=== PATIENT | female | born 1985 ===

== ENCOUNTER 2020-12-10 13:20 | Inpatient (IN) | payer BC ==
[2020-12-10] MEDS ORDERED: Carboprost Tromethamine 250 MCG/1 ML Amp IM PRN (14:11)
[2020-12-10] MEDS ORDERED: Misoprostol 25 MCG (1/4 of 100 MCG) Tab VAG PRN ×2 (14:11)
[2020-12-10] MEDS ORDERED: Terbutaline 1 MG/ML SDV SUBCUT PRN (14:11)
[2020-12-10] MEDS ORDERED: Nalbuphine 10 MG/1 ML Vial IVPUSH PRN (14:11)
[2020-12-10] MEDS ORDERED: Butorphanol 1 MG/ML SDV IVPUSH PRN (14:11)
[2020-12-10] MEDS ORDERED: Lidocaine 1% 50 ML MDV INJECT PRN (14:11)
[2020-12-10] MEDS ORDERED: Sodium Chloride 0.9% 2.5 ML Syringe FLUSH PRN (14:11)
[2020-12-10] MEDS ORDERED: Methylergonovine 0.2 MG/1 ML Amp IM PRN (14:11)
[2020-12-10] MEDS ORDERED: Sodium Chloride 0.9% 10 ML SDV IV PRN (14:11)
[2020-12-10] MEDS ORDERED: Sodium Chloride 0.9% 10 ML Syringe FLUSH PRN (14:11)
[2020-12-10] MEDS ORDERED: Misoprostol 200 MCG Tab PO PRN (14:11)
[2020-12-10] MEDS ORDERED: Water For Irrigation,Sterile 1,000 ML Container IRR PRN (14:11)
[2020-12-10] MEDS ORDERED: Tranexamic Acid 1,000 MG in Sodium Chloride 0.9% 100 ML IV PRN (14:11)
[2020-12-10] MEDS ORDERED: Oxytocin/0.9 % Sodium Chloride 30 UNIT/500 ML BAG IV SCH ×2 (14:15)
[2020-12-10] MEDS: Lactated Ringers 1,000 ML IV SCH ×3 (17:25→21:35)
[2020-12-10] MEDS ORDERED: Oxytocin/0.9 % Sodium Chloride 30 UNIT/500 ML BAG ONE (17:31)
[2020-12-10] MEDS ORDERED: Ropivacaine HCl/PF 200 ML ONE (20:04)
[2020-12-10] MEDS ORDERED: Bupivacaine 0.25% 10 ML SDV ONE (20:04)
--- NOTE | 2020-12-10 20:38 | PCM.PREANE ---
Preanesthetic Assessment - Anesthesia/Transfusion/Family Hx Anesthesia History: Prior Anesthesia Without Reaction Family History of Anesthesia Reaction: No Transfusion History: Prior Transfusion Without Reaction - Review of Systems General: No Symptoms Pulmonary: No Symptoms Cardiovascular: No Symptoms Gastrointestinal: No Symptoms Neurological: No Symptoms Other: Reports: None - Physical Assessment NPO Status Date: 12/10/20 NPO Status Time: 18:00 Height: 5 ft 4 in Weight: 280 lb ASA Class: 2 Mental Status: Alert & Oriented x3 Airway Class: Mallampati = 3 Dentition: Reports: Normal Dentition ROM/Head Extension: Full Lungs: Clear to Auscultation, Normal Respiratory Effort Cardiovascular: Regular Rate, Regular Rhythm - Lab Values: Laboratory Last Values WBC 10.12 K/uL (4.0-11.0) 12/10/20 14:00 RBC 4.32 M/uL (4.30-5.90) 12/10/20 14:00 Hgb 12.5 g/dL (12.0-16.0) 12/10/20 14:00 Hct 36.9 % (36.0-46.0) 12/10/20 14:00 MCV 85.4 fL (80.0-98.0) 12/10/20 14:00 MCH 28.9 pg (27.0-32.0) 12/10/20 14:00 MCHC 33.9 g/dL (31.0-37.0) 12/10/20 14:00 RDW Std Deviation 45.2 fl (28.0-62.0) 12/10/20 14:00 RDW Coeff of Karen 15 % (11.0-15.0) 12/10/20 14:00 Plt Count 211 K/uL (150-400) 12/10/20 14:00 MPV 12.10 fL (7.40-12.00) H 12/10/20 14:00 Nucleated RBC % 0.0 /100WBC 12/10/20 14:00 Nucleated RBCs # 0 K/uL 12/10/20 14:00 Urine Color YELLOW 12/10/20 18:55 Urine Appearance CLEAR 12/10/20 18:55 Urine pH 6.0 (5.0-8.0) 12/10/20 18:55 Ur Specific [place] 1.025 (1.001-1.035) 12/10/20 18:55 Urine Protein NEGATIVE mg/dL (NEGATIVE) 12/10/20 18:55 Urine Glucose (UA) NEGATIVE mg/dL (NEGATIVE) 12/10/20 18:55 Urine Ketones NEGATIVE mg/dL (NEGATIVE) 12/10/20 18:55 Urine Occult Blood LARGE (NEGATIVE) H 12/10/20 18:55 Urine Nitrite NEGATIVE (NEGATIVE) 12/10/20 18:55 Urine Bilirubin NEGATIVE (NEGATIVE) 12/10/20 18:55 Urine Urobilinogen 0.2 EU/dL (<2.0) 12/10/20 18:55 Ur Leukocyte Esterase NEGATIVE (NEGATIVE) 12/10/20 18:55 SARS-CoV-2 RNA (KRZYSZTOF) NEGATIVE (NEGATIVE) 12/10/20 14:00 Blood Type A POSITIVE 12/10/20 14:00 Antibody Screen NEGATIVE 12/10/20 14:00 - Allergies Allergies/Adverse Reactions: Allergies Allergy/AdvReac Type Severity Reaction Status Date / Time No Known Allergies Allergy Verified 11/20/20 14:35 - Blood Blood Available: Yes Product(s) Available: PRBC - Acknowledgements Anesthesia Type Planned: Epidural Pt an Appropriate Candidate for the Planned Anesthesia: Yes Alternatives and Risks of Anesthesia Discussed w Pt/Guardian: Yes Pt/Guardian Understands and Agrees with Anesthesia Plan: Yes PreAnesthesia Questionnaire - Past Health History Medical/Surgical History: Denies 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: - SUBSTANCE USE Tobacco Use Status *Q: Never Tobacco User Second Hand Smoke Exposure: No Recreational Drug Use History: No - CURRENT (IN HOUSE) MEDS Current Meds: Current Medications Butorphanol Tartrate (Butorphanol 1 Mg/Ml Sdv) 1 mg IVPUSH Q1H PRN PRN Reason: Pain (severe 7-10) Carboprost Tromethamine (Carboprost Tromethamine 250 Mcg/1 Ml Amp) 250 mcg IM ASDIRECTED PRN PRN Reason: Post Hemorrhage Oxytocin/Sodium Chloride (Oxytocin 30 Unit/500 Ml-Ns) 30 unit in 500 mls @ 999 mls/hr IV TITRATE RASHIDA Tranexamic Acid 1,000 mg/ (Sodium Chloride) 110 mls @ 660 mls/hr IV ONETIME PRN PRN Reason: Bleeding Oxytocin/Sodium Chloride (Oxytocin 30 Unit/500 Ml-Ns) 30 unit in 500 mls @ 2 mls/hr IV TITRATE RASHIDA; Protocol Last Titration: 12/10/20 19:05 Dose: 6 munits/min, 6 mls/hr Documented by: Lactated Ringer's (Ringers, Lactated) 1,000 mls @ 150 mls/hr IV ASDIRECTED RASHIDA Last Admin: 12/10/20 20:20 Dose: 150 mls/hr Documented by: Lidocaine HCl (Lidocaine 1% 50 Ml Mdv) 50 ml INJECT ONETIME PRN PRN Reason: Laceration repair Methylergonovine Maleate (Methylergonovine 0.2 Mg/1 Ml Amp) 0.2 mg IM ASDIRECTED PRN PRN Reason: Post Hemorrhage Misoprostol (Misoprostol 200 Mcg Tab) 200 mcg PO ONETIME PRN PRN Reason: Post Hemorrhage Misoprostol (Misoprostol 25 Mcg (1/4 Of 100 Mcg) Tab) 25 mcg VAG ONETIME PRN PRN Reason: Cervical Ripening Misoprostol (Misoprostol 25 Mcg (1/4 Of 100 Mcg) Tab) 25 mcg VAG Q4H PRN PRN Reason: Cervical Ripening Nalbuphine HCl (Nalbuphine 10 Mg/1 Ml Vial) 10 mg IVPUSH Q1H PRN PRN Reason: Pain (severe 7-10) Sodium Chloride (Sodium Chloride 0.9% 10 Ml Syringe) 10 ml FLUSH ASDIRECTED PRN PRN Reason: Keep Vein Open Sodium Chloride (Sodium Chloride 0.9% 2.5 Ml Syringe) 2.5 ml FLUSH ASDIRECTED PRN PRN Reason: Keep Vein Open Sodium Chloride (Sodium Chloride 0.9% 10 Ml Sdv) 10 ml IV ASDIRECTED PRN PRN Reason: IV Use Sterile Water (Water For Irrigation,Sterile 1,000 Ml Container) 1,000 ml IRR ASDIRECTED PRN PRN Reason: delivery Terbutaline Sulfate (Terbutaline 1 Mg/Ml Sdv) 0.25 mg SUBCUT ASDIRECTED PRN PRN Reason: Tacysystole Discontinued Medications Bupivacaine HCl (Bupivacaine 0.25% 10 Ml Sdv) Confirm Administered Dose 10 ml .ROUTE .STK-MED ONE Stop: 12/10/20 20:05 Oxytocin/Sodium Chloride (Oxytocin 30 Unit/500 Ml-Ns) Confirm Administered Dose 30 unit in 500 mls @ as directed .ROUTE .STK-MED ONE Stop: 12/10/20 17:32 Ropivacaine (Naropin 0.2%) Confirm Administered Dose 200 mls @ as directed .ROUTE .[employer]-MED ONE Stop: 12/10/20 20:05 - Pre-Procedure Checklist Attending Provider Aware: Yes Chart Reviewed: Yes Consent Signed: Yes Labs Reviewed: Yes VS/FHR Reviewed: Yes Patient Identification Confirmation Method: Reports: Verbal Patient Pt an Appropriate Candidate for the Planned Anesthesia: Yes Alternatives and Risks of Anesthesia Discussed w Pt/Guardian: Yes - Procedure Procedure Start Date: 12/10/20 Procedure Start Time: 20:[address]: Reports: Blood Pressure, Heart Rate, SPO2 Functional IV: Yes Safety Measures: Reports: Patient Identified, Procedure Verified, Site Verified, Procedure Time Out Patient Position: Reports: Sitting Prep: Reports: Betadine x3, Sterile Drape Local Anesthetic: Reports: Intradermal Wheal w Lidocaine 1% Regional Placement Level: Reports: L3-4 Needle: Reports: 17 g Touhy Approach: Reports: Midline Technique: Reports: HEAVENLY Plastic Syringe Parasthesia: Reports: None Test Dose Time: 20:20 Test Dose Medication: Reports: Lidocaine 1.5% w Epinephrine 1:200,000 Test Dose Response: Reports: Negative Loading Dose Time: 20:25 Loading Dose Medication: bupivicaine .25% 10cc Loading Dose Patient Position: sitting Continuous Infusion Start Time: 20:30 Continuous Infusion Medication: ropivicaine 0.2% Continuous Infusion Rate: 16 Continuous Infusion PCS Bolus Option: 4 Continuous Infusion Lockout Dose (cc/hr): 15 Patient Position Post Placement: Reports: Supline/CESAR VS and FHR Monitored in Unit Post Placement: Yes Procedure End Date: 12/10/20 Procedure End Time: 21:15
[2020-12-11] MEDS ORDERED: Acetaminophen 500 MG Tab PO PRN (01:48)
[2020-12-11] MEDS ORDERED: Benzocaine/Menthol 20%-0.5% Spray 78 GM Cannister TOP PRN (01:48)
[2020-12-11] MEDS ORDERED: Lanolin 100% Cream 7 GM Tube TOP PRN (01:48)
[2020-12-11] MEDS ORDERED: Bisacodyl 10 MG Supp RECTAL PRN (01:48)
[2020-12-11] MEDS ORDERED: Witch Hazel Medicated Pads 40/Jar TOP PRN (01:48)
[2020-12-11] MEDS ORDERED: Docusate Sodium 100 MG Cap PO PRN (01:48)
[2020-12-11] MEDS ORDERED: Ibuprofen 400 MG Tab PO PRN (01:48)
[2020-12-11] MEDS ORDERED: oxyCODONE 5 MG Tab PO PRN (01:48)
--- NOTE | 2020-12-11 01:56 | PCM.OPNOTE ---
- General Post-Op/Procedure Note Date of Surgery/Procedure: 12/11/20 Operative Procedure(s): /3rd MLL repaired Findings: Viable male APGARs 9, 9 weight 4190 gm. Spontaneous delivery intact placenta with 3V cord Pre Op Diagnosis: 41/3 week IUP. IOL for past due Post-Op Diagnosis: Same Anesthesia Technique: Epidural Primary Surgeon: Pattie Vogel EBL in mLs: 400 Complications: none known Condition: Stable Free Text/Narrative:: Dictation [id number]
[2020-12-11] MEDS: Docusate Sodium 100 MG Cap PO PRN ×2 (07:53→20:45)
[2020-12-11] MEDS: Acetaminophen 500 MG Tab PO PRN ×2 (07:53→20:45)
[2020-12-11] MEDS: Ibuprofen 800 MG Tab PO PRN ×2 (07:53→16:13)
--- NOTE | 2020-12-11 08:14 | OR ---
SURGEON: Pattie Vogel M.D. DATE OF PROCEDURE: 12/11/2020 PREOPERATIVE DIAGNOSES: 1. A 41/2 week intrauterine . 2. Induction of labor for past due . POSTOPERATIVE DIAGNOSES: 1. A 41/2 week intrauterine . 2. Induction of labor for past due . PROCEDURE: Spontaneous vaginal delivery; third-degree midline laceration, repaired. PRIMARY SURGEON: Pattie Vogel M.D. ANESTHESIA: Epidural. ESTIMATED BLOOD LOSS: 400 mL. COMPLICATIONS: None known. FINDINGS: Viable male. scores of 9 at one minute and 9 at five minutes. Weight of 4190 g. Spontaneous delivery, intact placenta, 3-vessel cord. DISPOSITION: to [facility]. Mom in LDRP, stable. PROCEDURE DETAILS: Margy is a 35-year-old, , at 41/2 weeks gestational age, who presents for scheduled induction of labor for past due . Upon admission, she was found to be 4 cm, 70% effaced, -2 station. She was admitted. Routine labs were drawn. IV hydration was initiated. Pitocin was initiated. Category 1 heart tones were observed. The patient underwent amniotomy. Clear fluid was returned. She became increasingly uncomfortable. Underwent regional anesthesia in the form of epidural, became more comfortable, and shortly thereafter was found to be approximately 8 cm dilated. The patient again continued to progress through the evening hours, and shortly after 7 p.m., was found to be complete with 100% effaced at zero station. She continued to labor, and once the head was at a +3 station, began pushing efforts, pushed readily to a +4 station, was placed in modified dorsal lithotomy position, prepped and draped in the usual aseptic manner. She was able to continue to push with next stage contractions, delivered 's head atraumatically spontaneously, followed by anterior shoulder, posterior shoulder, remainder of body without difficulty. The 's oropharynx and nares were bulb suctioned. was handed off to his mother with attending nursery staff at her side. After a delay, the cord was clamped x2 and cut. Cord arterial, cord venous, cord blood sampling was obtained. Light pressure was applied while the placenta was delivered spontaneously intact. Vigorous fundal uterine massage was then applied while 30 units of Pitocin was delivered in 500 mL of fluid. Upon inspection of cervix, vaginal sidewall, and perineum, there was a third-degree midline laceration present. This was repaired using 3-0 Vicryl. The levator laceration was reapproximated using 3-0 Vicryl with [id number] fashion reapproximation followed by repair of the secondary remaining laceration using 3-0 Vicryl in the usual fashion. Rectal exam was performed. Mucosa was found to be intact with no defects noted. The patient tolerated this procedure well. Sponge, instrument, and needle counts correct. Hemostasis is evident. The patient remained in LDRP, infant to [facility]. [place] / MICHELLE /[id number] MTDD
--- NOTE | 2020-12-11 11:29 | PCM.POSTAN ---
POST ANESTHESIA ASSESSMENT - MENTAL STATUS Mental Status: Alert, Oriented - VITAL SIGNS Vital Signs: Last Vital Signs Temp 96.6 F L 12/11/20 07:00 Pulse Resp 16 12/11/20 07:00 BP 129/97 H 12/11/20 07:00 Pulse Ox 98 12/11/20 07:00 - RESPIRATORY Respiratory Status: Respiratory Rate WNL, Airway Patent, O2 Saturation Stable - CARDIOVASCULAR CV Status: Pulse Rate WNL, Blood Pressure Stable - GASTROINTESTINAL GI Status: No Symptoms - POST OP HYDRATION Hydration Status: Adequate & Stable
--- NOTE | 2020-12-11 11:31 | PCM48HPAN ---
Post Anesthesia Note - EVALUATION WITHIN 48HRS OF ANESTHETIC Vital Signs in Normal Range: Yes Patient Participated in Evaluation: Yes Respiratory Function Stable: Yes Airway Patent: Yes Cardiovascular Function Stable: Yes Hydration Status Stable: Yes Pain Control Satisfactory: Yes Nausea and Vomiting Control Satisfactory: Yes Mental Status Recovered: Yes Vital Signs: Last Vital Signs Temp 96.6 F L 12/11/20 07:00 Pulse Resp 16 12/11/20 07:00 BP 129/97 H 12/11/20 07:00 Pulse Ox 98 12/11/20 07:00
--- NOTE | 2020-12-11 11:57 | PCM.PNPP ---
- General Info Date of Service: 12/11/20 Functional Status: Reports: Pain Controlled, Tolerating Diet, Ambulating, Urinating - Review of Systems General: Reports: Fatigue. Denies: Fever, Weakness Pulmonary: Denies: Shortness of Breath Cardiovascular: Denies: Chest Pain, Palpitations, Lightheadedness Gastrointestinal: Denies: Abdominal Pain, Nausea, Vomiting Genitourinary: Denies: Flank Pain Musculoskeletal: Reports: No Symptoms Skin: Reports: No Symptoms Neurological: Reports: No Symptoms Psychiatric: Reports: No Symptoms - General Info Date of Service: 12/11/20 - Patient Data Vital Signs - Most Recent: Last Vital Signs Temp 35.9 C L 12/11/20 07:00 Pulse Resp 16 12/11/20 07:00 BP 129/97 H 12/11/20 07:00 Pulse Ox 98 12/11/20 07:00 Weight - Most Recent: 127.006 kg Lab Results - Last 24 Hours: Laboratory Results - last 24 hr 12/10/20 12/10/20 12/10/20 Range/Units 14:00 14:00 14:00 WBC 10.12 (4.0-11.0) K/uL RBC 4.32 (4.30-5.90) M/uL Hgb 12.5 (12.0-16.0) g/dL Hct 36.9 (36.0-46.0) % MCV 85.4 (80.0-98.0) fL MCH 28.9 (27.0-32.0) pg MCHC 33.9 (31.0-37.0) g/dL RDW Std Deviation 45.2 (28.0-62.0) fl RDW Coeff of Karen 15 (11.0-15.0) % Plt Count 211 (150-400) K/uL MPV 12.10 H (7.40-12.00) fL Nucleated RBC % 0.0 /100WBC Nucleated RBCs # 0 K/uL Cord ABG pH (7.18-7.38) Cord ABG Base Excess (-10--2) Cord VBG pH (7.25-7.45) Cord VBG Base Excess (-10--2) Urine Color Urine Appearance Urine pH (5.0-8.0) Ur Specific [place] (1.001-1.035) Urine Protein (NEGATIVE) mg/dL Urine Glucose (UA) (NEGATIVE) mg/dL Urine Ketones (NEGATIVE) mg/dL Urine Occult Blood (NEGATIVE) Urine Nitrite (NEGATIVE) Urine Bilirubin (NEGATIVE) Urine Urobilinogen (<2.0) EU/dL Ur Leukocyte Esterase (NEGATIVE) SARS-CoV-2 RNA (KRZYSZTOF) NEGATIVE (NEGATIVE) Blood Type A POSITIVE Antibody Screen NEGATIVE 12/10/20 12/11/20 Range/Units 18:55 01:16 WBC (4.0-11.0) K/uL RBC (4.30-5.90) M/uL Hgb (12.0-16.0) g/dL Hct (36.0-46.0) % MCV (80.0-98.0) fL MCH (27.0-32.0) pg MCHC (31.0-37.0) g/dL RDW Std Deviation (28.0-62.0) fl RDW Coeff of Karen (11.0-15.0) % Plt Count (150-400) K/uL MPV (7.40-12.00) fL Nucleated RBC % /100WBC Nucleated RBCs # K/uL Cord ABG pH 7.268 (7.18-7.38) Cord ABG Base Excess -5 (-10--2) Cord VBG pH 7.319 (7.25-7.45) Cord VBG Base Excess -5 (-10--2) Urine Color YELLOW Urine Appearance CLEAR Urine pH 6.0 (5.0-8.0) Ur Specific [place] 1.025 (1.001-1.035) Urine Protein NEGATIVE (NEGATIVE) mg/dL Urine Glucose (UA) NEGATIVE (NEGATIVE) mg/dL Urine Ketones NEGATIVE (NEGATIVE) mg/dL Urine Occult Blood LARGE H (NEGATIVE) Urine Nitrite NEGATIVE (NEGATIVE) Urine Bilirubin NEGATIVE (NEGATIVE) Urine Urobilinogen 0.2 (<2.0) EU/dL Ur Leukocyte Esterase NEGATIVE (NEGATIVE) SARS-CoV-2 RNA (KRZYSZTOF) (NEGATIVE) Blood Type Antibody Screen Med Orders - Current: Current Medications Acetaminophen (Acetaminophen 500 Mg Tab) 500 mg PO Q4H PRN PRN Reason: Pain (mild 1-3) Acetaminophen (Acetaminophen 500 Mg Tab) 1,000 mg PO Q4H PRN PRN Reason: Pain (mild 1-3) Benzocaine/Menthol (Benzocaine/Menthol 20%-0.5% [place] 78 Gm Cannister) 78 gm TOP ASDIRECTED PRN PRN Reason: Perineal Comfort Measure Last Admin: 12/11/20 05:48 Dose: 1 can Documented by: Bisacodyl (Bisacodyl 10 Mg Supp) 10 mg RECTAL ONETIME PRN PRN Reason: Constipation Docusate Sodium (Docusate Sodium 100 Mg Cap) 100 mg PO Q12H PRN PRN Reason: Constipation Last Admin: 12/11/20 07:53 Dose: 100 mg Documented by: Emollient Ointment (Lanolin 100% Cream 7 Gm Tube) 0 gm TOP ASDIRECTED PRN PRN Reason: Sore Nipples Oxytocin/Sodium Chloride (Oxytocin 30 Unit/500 Ml-Ns) 30 unit in 500 mls @ 999 mls/hr IV TITRATE [facility] Tranexamic Acid 1,000 mg/ (Sodium Chloride) 110 mls @ 660 mls/hr IV ONETIME PRN PRN Reason: Bleeding Lactated Ringer's (Ringers, Lactated) 1,000 mls @ 150 mls/hr IV ASDIRECTED RASHIDA Last Admin: 12/10/20 21:35 Dose: 500 mls/hr Documented by: Ibuprofen (Ibuprofen 400 Mg Tab) 400 mg PO Q4H PRN PRN Reason: Pain (mild 1-3) Ibuprofen (Ibuprofen 800 Mg Tab) 800 mg PO Q6H PRN PRN Reason: Pain (mild 1-3) Last Admin: 12/11/20 07:53 Dose: 800 mg Documented by: Methylergonovine Maleate (Methylergonovine 0.2 Mg/1 Ml Amp) 0.2 mg IM ASDIRECTED PRN PRN Reason: Post Hemorrhage Nalbuphine HCl (Nalbuphine 10 Mg/1 Ml Vial) 10 mg IVPUSH Q1H PRN PRN Reason: Pain (severe 7-10) Oxycodone HCl (Oxycodone 5 Mg Tab) 5 mg PO Q2H PRN PRN Reason: Pain (severe 7-10) Sodium Chloride (Sodium Chloride 0.9% 10 Ml Syringe) 10 ml FLUSH ASDIRECTED PRN PRN Reason: Keep Vein Open Sodium Chloride (Sodium Chloride 0.9% 2.5 Ml Syringe) 2.5 ml FLUSH ASDIRECTED PRN PRN Reason: Keep Vein Open Sterile Water (Water For Irrigation,Sterile 1,000 Ml Container) 1,000 ml IRR ASDIRECTED PRN PRN Reason: delivery Witch Alla (Witch Alla Medicated Pads 40/Jar) 1 pad TOP ASDIRECTED PRN PRN Reason: comfort care Last Admin: 12/11/20 05:49 Dose: 1 canister Documented by: Discontinued Medications Bupivacaine HCl (Bupivacaine 0.25% 10 Ml Sdv) Confirm Administered Dose 10 ml .ROUTE .STK-MED ONE Stop: 12/10/20 20:05 Butorphanol Tartrate (Butorphanol 1 Mg/Ml Sdv) 1 mg IVPUSH Q1H PRN PRN Reason: Pain (severe 7-10) Carboprost Tromethamine (Carboprost Tromethamine 250 Mcg/1 Ml Amp) 250 mcg IM ASDIRECTED PRN PRN Reason: Post Hemorrhage Oxytocin/Sodium Chloride (Oxytocin 30 Unit/500 Ml-Ns) 30 unit in 500 mls @ 2 mls/hr IV TITRATE RASHIDA; Protocol Last Titration: 12/10/20 22:40 Dose: 10 munits/min, 10 mls/hr Documented by: Oxytocin/Sodium Chloride (Oxytocin 30 Unit/500 Ml-Ns) Confirm Administered Dose 30 unit in 500 mls @ as directed .ROUTE .STK-MED ONE Stop: 12/10/20 17:32 Ropivacaine (Naropin 0.2%) Confirm Administered Dose 200 mls @ as directed .ROUTE .STK-MED ONE Stop: 12/10/20 20:05 Lidocaine HCl (Lidocaine 1% 50 Ml Mdv) 50 ml INJECT ONETIME PRN PRN Reason: Laceration repair Misoprostol (Misoprostol 200 Mcg Tab) 200 mcg PO ONETIME PRN PRN Reason: Post Hemorrhage Misoprostol (Misoprostol 25 Mcg (1/4 Of 100 Mcg) Tab) 25 mcg VAG ONETIME PRN PRN Reason: Cervical Ripening Misoprostol (Misoprostol 25 Mcg (1/4 Of 100 Mcg) Tab) 25 mcg VAG Q4H PRN PRN Reason: Cervical Ripening Sodium Chloride (Sodium Chloride 0.9% 10 Ml Sdv) 10 ml IV ASDIRECTED PRN PRN Reason: IV Use Terbutaline Sulfate (Terbutaline 1 Mg/Ml Sdv) 0.25 mg SUBCUT ASDIRECTED PRN PRN Reason: Tacysystole - Exam General: Alert, Oriented Lungs: Normal Respiratory Effort Cardiovascular: Regular Rate, Regular Rhythm GI/Abdominal Exam: Normal Bowel Sounds, Soft Extremities: Pedal Edema (trace). No: Milo's Sign Skin: Warm, Dry, Intact Neurological: No New Focal Deficit Psy/Mental Status: Alert, Normal Affect, Normal Mood - Problem List & Annotations (1) Vaginal delivery SNOMED Code(s): 541341569 Code(s): O80 - ENCOUNTER FOR FULL-TERM UNCOMPLICATED DELIVERY Status: Acute Current Visit: Yes - Problem List Review Problem List Initiated/Reviewed/Updated: Yes - My Orders Last 24 Hours: My Active Orders 12/10/20 14:00 RPR (SYPHILIS SERO) W/ RFLX [REF] Routine 12/10/20 14:11 Patient Status [ADT] Routine Methylergonovine [Methergine] 0.2 mg IM ASDIRECTED PRN Nalbuphine [Nubain] 10 mg IVPUSH Q1H PRN Sodium Chloride 0.9% [Saline Flush] 10 ml FLUSH ASDIRECTED PRN Sodium Chloride 0.9% [Saline Flush] 2.5 ml FLUSH ASDIRECTED PRN Tranexamic Acid [Cyklokapron] 1,000 mg Sodium Chloride 0.9% [Normal Saline] 100 ml IV ONETIME Water For Irrigation,Sterile [Sterile Water for Irrigation] 1,000 ml IRR ASDIRECTED PRN Peripheral IV Insertion Adult [OM.PC] Routine Resuscitation Status Routine 12/10/20 14:12 Communication Order [RC] ASDIRECTED Communication Order [RC] ASDIRECTED 12/10/20 14:15 Lactated Ringers [Ringers, Lactated] 1,000 ml IV ASDIRECTED Oxytocin/0.9 % Sodium Chloride [Oxytocin 30 Unit/500 ML-NS] 30 unit in 500 ml IV TITRATE 12/11/20 01:48 Patient Status [ADT] Routine May Shower [RC] ASDIRECTED Notify Provider Vital Signs [RC] ASDIRECTED Up ad Tiffanie [RC] ASDIRECTED Vital Signs [RC] PER UNIT ROUTINE Acetaminophen [Tylenol Extra Strength] 1,000 mg PO Q4H PRN Acetaminophen [Tylenol Extra Strength] 500 mg PO Q4H PRN Benzocaine/Menthol [Dermoplast Pain Relief 20%-0.5% [place]] 78 gm TOP ASDIRECTED PRN Docusate Sodium [Colace] 100 mg PO Q12H PRN Ibuprofen [Motrin] 400 mg PO Q4H PRN Ibuprofen [Motrin] 800 mg PO Q6H PRN Lanolin [Lansinoh HPA] See Dose Instructions TOP ASDIRECTED PRN bisacodyL [Dulcolax] 10 mg RECTAL ONETIME PRN oxyCODONE 5 mg PO Q2H PRN witch Alla [Tucks] 1 pad TOP ASDIRECTED PRN Assess Lochia [WOMSER] Per Unit Routine Assess Uterine Involution [WOMSER] Per Unit Routine Peripheral IV Discontinue [OM.PC] Routine 12/11/20 01:49 Cooling Warming Measures [RC] ASDIRECTED Ice Therapy [OM.PC] Per Unit Routine Perineal Care [OM.PC] Per Unit Routine Sitz Bath [OM.PC] Per Unit Routine 12/11/20 Breakfast Regular Diet [DIET] 12/12/20 05:11 HEMOGLOBIN/HEMATOCRIT,HH [HEME] Timed - Assessment Assessment:: PPD 0 status post /3rd MLL repaired - Plan Plan:: Continue PP cares
[2020-12-12] MEDS: Ibuprofen 800 MG Tab PO PRN (01:44)
--- NOTE | 2020-12-12 08:06 | PCM.PNPP ---
- General Info Date of Service: 12/12/20 Admission Dx/Problem (Free Text): Subjective Update: Resting comfortably in bed during rounds. Pain well controlled. Lochia decreasing. Ambulating and voiding without difficulty. Tolerating regular diet. , working on latch. Plan for circumcision today. - General Info Date of Service: 12/12/20 - Patient Data Vital Signs - Most Recent: Last Vital Signs Temp 96.7 F L 12/12/20 06:00 Pulse Resp 17 12/12/20 06:00 BP 130/81 12/12/20 06:00 Pulse Ox 97 12/12/20 06:00 Weight - Most Recent: 280 lb Lab Results - Last 24 Hours: Laboratory Results - last 24 hr 12/12/20 Range/Units 05:37 Hgb 9.8 L (12.0-16.0) g/dL Hct 29.0 L (36.0-46.0) % Med Orders - Current: Current Medications Acetaminophen (Acetaminophen 500 Mg Tab) 500 mg PO Q4H PRN PRN Reason: Pain (mild 1-3) Acetaminophen (Acetaminophen 500 Mg Tab) 1,000 mg PO Q4H PRN PRN Reason: Pain (mild 1-3) Last Admin: 12/11/20 20:45 Dose: 1,000 mg Documented by: Benzocaine/Menthol (Benzocaine/Menthol 20%-0.5% [place] 78 Gm Cannister) 78 gm TOP ASDIRECTED PRN PRN Reason: Perineal Comfort Measure Last Admin: 12/11/20 05:48 Dose: 1 can Documented by: Bisacodyl (Bisacodyl 10 Mg Supp) 10 mg RECTAL ONETIME PRN PRN Reason: Constipation Docusate Sodium (Docusate Sodium 100 Mg Cap) 100 mg PO Q12H PRN PRN Reason: Constipation Last Admin: 12/11/20 20:45 Dose: 100 mg Documented by: Emollient Ointment (Lanolin 100% Cream 7 Gm Tube) 0 gm TOP ASDIRECTED PRN PRN Reason: Sore Nipples Oxytocin/Sodium Chloride (Oxytocin 30 Unit/500 Ml-Ns) 30 unit in 500 mls @ 999 mls/hr IV TITRATE RASHIDA Tranexamic Acid 1,000 mg/ (Sodium Chloride) 110 mls @ 660 mls/hr IV ONETIME PRN PRN Reason: Bleeding Lactated Ringer's (Ringers, Lactated) 1,000 mls @ 150 mls/hr IV ASDIRECTED RASHIDA Last Admin: 12/10/20 21:35 Dose: 500 mls/hr Documented by: Ibuprofen (Ibuprofen 400 Mg Tab) 400 mg PO Q4H PRN PRN Reason: Pain (mild 1-3) Ibuprofen (Ibuprofen 800 Mg Tab) 800 mg PO Q6H PRN PRN Reason: Pain (mild 1-3) Last Admin: 12/12/20 01:44 Dose: 800 mg Documented by: Methylergonovine Maleate (Methylergonovine 0.2 Mg/1 Ml Amp) 0.2 mg IM ASDIRECTED PRN PRN Reason: Post Hemorrhage Nalbuphine HCl (Nalbuphine 10 Mg/1 Ml Vial) 10 mg IVPUSH Q1H PRN PRN Reason: Pain (severe 7-10) Oxycodone HCl (Oxycodone 5 Mg Tab) 5 mg PO Q2H PRN PRN Reason: Pain (severe 7-10) Sodium Chloride (Sodium Chloride 0.9% 10 Ml Syringe) 10 ml FLUSH ASDIRECTED PRN PRN Reason: Keep Vein Open Sodium Chloride (Sodium Chloride 0.9% 2.5 Ml Syringe) 2.5 ml FLUSH ASDIRECTED PRN PRN Reason: Keep Vein Open Sterile Water (Water For Irrigation,Sterile 1,000 Ml Container) 1,000 ml IRR DIRECTED PRN PRN Reason: delivery Witch Alla (Witch Alla Medicated Pads 40/Jar) 1 pad TOP ASDIRECTED PRN PRN Reason: comfort care Last Admin: 12/11/20 05:49 Dose: 1 canister Documented by: Discontinued Medications Bupivacaine HCl (Bupivacaine 0.25% 10 Ml Sdv) Confirm Administered Dose 10 ml .ROUTE .[facility] ONE Stop: 12/10/20 20:05 Butorphanol Tartrate (Butorphanol 1 Mg/Ml Sdv) 1 mg IVPUSH Q1H PRN PRN Reason: Pain (severe 7-10) Carboprost Tromethamine (Carboprost Tromethamine 250 Mcg/1 Ml Amp) 250 mcg IM ASDIRECTED PRN PRN Reason: Post Hemorrhage Oxytocin/Sodium Chloride (Oxytocin 30 Unit/500 Ml-Ns) 30 unit in 500 mls @ 2 mls/hr IV TITRATE RASHIDA; Protocol Last Titration: 12/10/20 22:40 Dose: 10 munits/min, 10 mls/hr Documented by: Oxytocin/Sodium Chloride (Oxytocin 30 Unit/500 Ml-Ns) Confirm Administered Dose 30 unit in 500 mls @ as directed .ROUTE .[facility] ONE Stop: 12/10/20 17:32 Ropivacaine (Naropin 0.2%) Confirm Administered Dose 200 mls @ as directed .ROU TE .[facility] ONE Stop: 12/10/20 20:05 Lidocaine HCl (Lidocaine 1% 50 Ml Mdv) 50 ml INJECT ONETIME PRN PRN Reason: Laceration repair Misoprostol (Misoprostol 200 Mcg Tab) 200 mcg PO ONETIME PRN PRN Reason: Post Hemorrhage Misoprostol (Misoprostol 25 Mcg (1/4 Of 100 Mcg) Tab) 25 mcg VAG ONETIME PRN PRN Reason: Cervical Ripening Misoprostol (Misoprostol 25 Mcg (1/4 Of 100 Mcg) Tab) 25 mcg VAG Q4H PRN PRN Reason: Cervical Ripening Sodium Chloride (Sodium Chloride 0.9% 10 Ml Sdv) 10 ml IV ASDIRECTED PRN PRN Reason: IV Use Terbutaline Sulfate (Terbutaline 1 Mg/Ml Sdv) 0.25 mg SUBCUT ASDIRECTED PRN PRN Reason: Tacysystole - Interaction Infant Disposition, : in Room with Family Interaction: Holding Infant Feeding: Breastfed ; Nursed Well Support Person: Significant Other - Recovery Exam Fundal Tone: Firm Fundal Level: 1 Fingerbreadths Below Umbilicus Fundal Placement: Midline Lochia Amount: Scant Lochia Color: Rubra/Red Bladder Status: Nonpalpable, Voiding Urinary Elimination: Voided - Exam General: Alert Lungs: Normal Respiratory Effort Cardiovascular: Regular Rate GI/Abdominal Exam: Soft, Non-Tender Extremities: Normal Range of Motion, Non-Tender, Pedal Edema (2+) Skin: Warm, Dry, Intact Neurological: No New Focal Deficit Psy/Mental Status: Normal Mood - Problem List Review Problem List Initiated/Reviewed/Updated: Yes - Assessment Assessment:: PPD 1 status post /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 * Desires circumcision today for Dispo: stable. Anticipate discharge today pending maternal/ status. Discharge instructions reviewed. Patient to return to clinic in 4 weeks for exam.
[2020-12-12] MEDS: Acetaminophen 500 MG Tab PO PRN (08:20)
[2020-12-12] MEDS: Docusate Sodium 100 MG Cap PO PRN (08:20)
== END 2020-12-12 12:03 | disposition home or self-care (01) | DRG 542 ==
LOC: MW.OBCHECK 13:20 → MW.OB 14:11 → OBSVTOIN 12-11 01:16 → MW.OB 12-11 05:23
PROVIDERS: ADMIT Obstetrics & Gynecology; ATTEND Obstetrics & Gynecology
PROC: 10E0XZZ Delivery of Products of Conception, External Approach (ICD-10-PCS; principal; 2020-12-11)
PROC: 10907ZC Drainage of Amniotic Fluid, Therapeutic from Products of Conception, Via Natural or Artificial Opening (ICD-10-PCS; 2020-12-11)
PROC: 0DQR0ZZ Repair Anal Sphincter, Open Approach (ICD-10-PCS; 2020-12-11)
PROC: 3E0R3BZ Introduction of Anesthetic Agent into Spinal Canal, Percutaneous Approach (ICD-10-PCS; 2020-12-11)
DX: O48.0 Post-term pregnancy (principal); O70.20 Third degree perineal laceration during delivery, unspecified; Z37.0 Single live birth; Z3A.41 41 weeks gestation of pregnancy; O99.214 Obesity complicating childbirth; Z20.822 Contact with and (suspected) exposure to COVID-19
CPT/HCPCS: 01967; 36415; 51702; 59025; 59409; 81003; 82803; 85014; 85018; 85027; 86592; 86850; 86900; 86901; A9270-GY; J2590; J2795; J3490; J7120; U0002